=== PATIENT | male | born 1960 | race Caucasian/White ===

== ENCOUNTER 2020-11-07 12:32 | Inpatient (IN) | payer BC, SELFPAY ==
[2020-11-07 12:33] VITALS: BP 107/52; PULSE 98; RESP 22; TEMP 36.7; O2SAT 98; BMI 42.5
--- NOTE | 2020-11-07 13:23 | CA_ITS ---
APPROVED REPORT Bilateral Lower Extremity Venous Study for DVT. Sheet Cutter: PARVEZ Indications redness, swelling and pain x 2 days, s/p long distance travel Risk Factors Hx-Gout Vein Imaging CFV (R): compressive, spontaneous, phasic, augmentation SFJ (R): compressive, spontaneous, phasic, augmentation FEM (R): compressive, spontaneous, phasic, augmentation POP (R): compressive, spontaneous, phasic, augmentation PTV (R): compressive, spontaneous, phasic, augmentation GSV (R): compressive, spontaneous, phasic, augmentation SSV (R): compressive, spontaneous, phasic, augmentation Peroneals (R):compressive, spontaneous, phasic, augmentation GAS (R): compressive, spontaneous, phasic, augmentation Findings Color flow duplex demonstrates no evidence of DVT of the following right lower extremity Veins:Common Femoral Vein, Femoral Vein, Popliteal Vein, Posterior Tibial Veins, Peroneal Veins. No gross evidence of DVT at this time, Limited exam due to extreme body habitus. Conclusion No gross evidence of DVT at this time, Limited exam due to extreme body habitus. Electronically signed by : Donovan Donahue MD 11/07/2020 16:49:27
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
[2020-11-07 13:48] LABS: Influenza A, PCR Not Detected (NotDetected); Influenza B, PCR Not Detected (NotDetected)
[2020-11-07 13:50] LABS: Basophils % 0.4 % (0.1-2.0); Eosinophils % 0.6 % (0.1-12.0); Hematocrit 39.9 % (42.0-52.0); Lymphocytes # 0.8 K/mm3 (0.7-4.5); Mean Corpuscular HGB Conc 35.1 g/dL (31.8-35.4); Mean Corpuscular Hemoglobin 29.2 pg (27.0-31.2); Mean Corpuscular Volume 83.3 fl (80-94); Mean Platelet Volume 8.6 fl (7.4-10.4); Monocytes # 0.4 K/mm3 (0.1-1.0); Neutrophils # 4.8 K/mm3 (1.8-7.8); Neutrophils % 79.9 % (37.0-80.0); Platelet Count 108 K/mm3 (142-424); Red Blood Count 4.79 M/mm3 (4.60-6.20); Red Cell Distribution Width 14.5 % (11.5-17.5)
[2020-11-07 14:03] LABS: Chloride 98 mmol/L (98-107); Potassium 3.6 mmoL/L (3.5-5.1); Sodium 131 mmol/L (136-145)
[2020-11-07 14:06] LABS: Alanine Aminotransferase 90 U/L (12-78); Albumin Level 3.7 g/dl (3.5-5.0); Albumin/Globulin Ratio 1.1 (1.1-1.8); Alkaline Phosphatase 119 U/L (38-126); Anion Gap 9.6 mEq/L (5-15); Aspartate Amino Transferase 175 U/L (17-59); Bilirubin,Total 1.7 mg/dl (0.2-1.3); Blood Urea Nitrogen 23 mg/dl (9-20); Calcium 8.6 mg/dl (8.4-10.2); Carbon Dioxide 27 mmol/L (22.0-30.0); Creatinine Clearance Estimated 96 mL/min (50-200); Estimated Glomerular Filt Rate 76 ml/min (>60); GFR (African American) 92 ML/MIN (>60); Globulin 3.3 g/dL (1.3-3.2); Glucose 136 mg/dl (74-100)
[2020-11-07 14:23] LABS: Coronavirus 19, PCR Detected (NotDetected)
[2020-11-07 14:24] LABS: Activated Partial Thrombo Time 34.8 seconds (22.8-30.6); INR 0.96 (0.9-1.1); Prothrombin Time 11.4 seconds (10.1-12.5)
--- NOTE | 2020-11-07 14:26 | PC.NURSE ---
Covid results called, pt is positive
--- NOTE | 2020-11-07 15:33 | PC.NURSE ---
BED ASSIGNMENT REQUESTED, ROOM 201. ALL STAFF NOTIFIED
--- NOTE | 2020-11-07 15:33 | PC.NURSE ---
Attempted to call care management no answer, called house for admission
--- NOTE | 2020-11-07 15:40 | P.CONPHA_ITS ---
- Pharmacy Consult Date: 11/07/20 Time: 15:40 Referring provider: DR. NICOLAS Reason for Consult:: VANCOMYCIN DOSING Allergies and ADEs:: Allergies Allergy/AdvReac Type Severity Reaction Status Date / Time cephalexin [From Keflex] AdvReac Intermediate CHEMICAL Verified 11/07/20 15:36 HEPITITIS, BREAKING OUT erythromycin base AdvReac Intermediate CHENICAL Verified 11/07/20 15:36 HEPITITIS, BREAKING OUT Home Medications:: Home Medications Medication Instructions Recorded Confirmed Type Citalopram Hydrobromide [Celexa] 40 mg PO DAILY 11/07/20 11/07/20 History Simvastatin 40 mg PO DAILY 11/07/20 11/07/20 History Height: 1.93 m Weight: 158.757 kg Laboratory Results:: Laboratory Results - last 24 hr 11/07/20 13:40: WBC 6.0, RBC 4.79, Hgb 14.0 L, Hct 39.9 L, MCV 83.3, MCH 29.2, MCHC 35.1, RDW 14.5, Plt Count 108 L, MPV 8.6, Neut % (Auto) 79.9, Lymph % (Auto) 13.0, [place] % (Auto) 6.0, Eos % (Auto) 0.6, Baso % (Auto) 0.4, Neut # (Auto) 4.8, Lymph # (Auto) 0.8, [place] # (Auto) 0.4, Eos # (Auto) 0.0, Baso # (Auto) 0.0 11/07/20 13:40: APTT 34.8 H 11/07/20 13:40: Sodium 131 L, Potassium 3.6, Chloride 98, Carbon Dioxide 27, Anion Gap 9.6, BUN 23 H, Creatinine 1.00, Estimated Creat Clear 96, Estimated GFR 76, Est GFR ( Amer) 92, Glucose 136 H, Calcium 8.6, Total Bilirubin 1.7 H, AST 175 H, ALT 90 H, Alkaline Phosphatase 119, Total Protein 7.0, Albumin 3.7, Globulin 3.3 H, Albumin/Globulin Ratio 1.1 11/07/20 13:40: PT 11.4, INR 0.96 11/07/20 13:40: Lactate 1.0 11/07/20 13:40: SARS-CoV-2 (PCR) Detected A, Influenza A Untype (PCR) Not detec clary, Influenza Type B (PCR) Not detected Assessment and Plan - Assessment and plan all Dx Assessment and Plan for all problems:: Pharmacokinetic dosing service Objective: Patient: Floor: Age: 60 yo Serum creatinine: 1.00 mg/dL Height: 76.0 Inches Weight (kg): 158.7 Assessment: IBW (kg): 86.80 Dosing wt(kg): 158.7 Estimated Creatinine clearance (ml/min): 96.4 CRCL method: Cockcroft and Gault using ibw(default). Drug selected: Vancomycin Loading dose (mg): Vd (liters): 134.9 (factor used: 0.85 L/kg) Noman (hr-1): 0.084 Half life (hrs): 8.25 CLvanco=?? 11.332 L/hr Recommended dose: 3000 mg Interval: 12 hrs Infusion time (hrs): 3.0 Predicted peak (mcg/mL): 31.0 Predicted trough (mcg/mL): 14.56 Total body weight is being used for vancomycin dosing. Recommendations: Give Vancomycin 3000 mg q 12 hrs with an expected Cpeak of 31.0 mcg/ml and an expected Ctrough of 14.56 mcg/ml AUC 0-24 /JAMILAH Data: JAMILAH 0.5 mcg/mL:?? AUC/JAMILAH:? 1058.9 JAMILAH 1.0 mcg/mL:?? AUC/JAMILAH:? 529.5 --------- JAMILAH 1.5 mcg/mL:?? AUC/JAMILAH:? 353.0 JAMILAH 2.0 mcg/mL:?? AUC/JAMILAH:? 264.7 Renal dosing of other antibiotics (review renal dosing of other medications and list guidelines here): Thank you for the consult, will continue to follow.
[2020-11-07 15:55] LABS: Coronavirus 19 IgG Antibody Positive (Negative); Coronavirus 19 IgM Antibody Negative (Negative)
[2020-11-07 16:05] LABS: Microscopic, Urine URINE MICROSCOPIC (MICROSCOPIC)
[2020-11-07 16:07] LABS: Appearance,Urine SL CLOUDY (Clear); Bilirubin,Urine Negative (Negative); Blood, Urine 2+ (Negative); Color,Urine YELLOW (Yellow); Glucose,Urine (UA) Negative (Negative); Ketones,Urine Negative (Negative); Leukocyte Esterase,Urine Negative (Negative); Nitrate,Urine Negative (Negative); Protein,Urine TRACE (Negative)
[2020-11-07 16:24] LABS: Bacteria,Urine 1+ /lpf; Squamous Epithelial Cell,Urine Occasional #/hpf (0-5)
--- NOTE | 2020-11-07 20:30 | PC.NURSE ---
Report given to Ana Maria
[2020-11-07 20:48] VITALS: BP 112/80; PULSE 82; RESP 18; TEMP 37; O2SAT 96
[2020-11-07 21:00] VITALS: BP 120/46; PULSE 98; RESP 23; TEMP 38; O2SAT 96; BMI 45.1
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
[2020-11-08] VITALS (8 sets, daily range): BP systolic 107–153; BP diastolic 50–75; PULSE 80–104; RESP 17–21; TEMP 36.8–39.5; O2SAT 95–100; BMI 99.8
--- NOTE | 2020-11-08 03:14 | PC.NURSE ---
PATIENT TEMP 103.[address]MIN[address]ED. PAGED DR. SEAMAN AT [phone].
--- NOTE | 2020-11-08 04:24 | PC.NURSE ---
PATIENT IS A&OX4. NO COMPLAINTS OF PAIN AND RN EXPLAINED TO PATIENT THAT MORPHINE IS AVAILABLE IF PAIN BECOMES A ISSUE, PATIENT STATED HE PREFERS NOT TO TAKE NARCOTICS. PATIENT AMBULATED TO BATHROOM X1 ASSIST. RIGHT LEG IS VERY EDEMATOUS AND HOT TO THE TOUCH, AND IS TENDER. PATIENT IS FEBRILE AND ACETAMINOPHEN AND IBUPROFEN GIVEN. VSS OTHERWISE. PATIENT WAS PLEASANT THIS SHIFT AND VOICED NO FURTHER CONCERNS.
--- NOTE | 2020-11-08 07:58 | P.CONPHA_ITS ---
[facility] Pharmacy VTE Monitoring - Patient Demographics Admission date: 11/07/20 Report Date: 11/08/20 Time: 07:58 Allergies/Adverse Reactions: Patient Allergies cephalexin [From Keflex] Adverse Reaction (Intermediate, Verified 11/07/20 15:36) CHEMICAL HEPITITIS, BREAKING OUT erythromycin base Adverse Reaction (Intermediate, Verified 11/07/20 15:36) CHENICAL HEPITITIS, BREAKING OUT Height: 1.93 m Weight: 372 kg Patient Problems: Current Active Problems Cellulitis of right lower extremity (Acute) COVID-19 (Acute) Obesity (Acute) - VTE Risk Labs: VTE Related Lab Results Hgb 14.0 g/dL (14.1-18.0) L 11/07/20 13:40 Hct 39.9 % (42.0-52.0) L 11/07/20 13:40 Plt Count 108 K/mm3 (142-424) L 11/07/20 13:40 PT 11.4 seconds (10.1-12.5) 11/07/20 13:40 INR 0.96 (0.9-1.1) 11/07/20 13:40 APTT 34.8 seconds (22.8-30.6) H 11/07/20 13:40 BUN 23 mg/dl (9-20) H 11/07/20 13:40 Creatinine 1.00 mg/dl (0.66-1.25) 11/07/20 13:40 Estimated Creat Clear 96 mL/min (50-200) 11/07/20 13:40 - Prophylaxis VTE Prophylaxis Ordered?: Yes Types of VTE Prophylaxis: Pharmacological Pharmacologic Type: Heparin
[2020-11-08 08:37] LABS: Basophils % 0.3 % (0.1-2.0); Eosinophils % 0.1 % (0.1-12.0); Hematocrit 35.9 % (42.0-52.0); Lymphocytes # 1.1 K/mm3 (0.7-4.5); Lymphocytes % 18.9 % (10-50); Mean Corpuscular HGB Conc 34.9 g/dL (31.8-35.4); Mean Corpuscular Hemoglobin 28.6 pg (27.0-31.2); Mean Corpuscular Volume 81.8 fl (80-94); Mean Platelet Volume 9.8 fl (7.4-10.4); Monocytes # 0.5 K/mm3 (0.1-1.0); Monocytes % 7.9 % (1.7-9.3); Neutrophils # 4.2 K/mm3 (1.8-7.8); Neutrophils % 72.8 % (37.0-80.0); Platelet Count 97 K/mm3 (142-424); Red Blood Count 4.38 M/mm3 (4.60-6.20); Red Cell Distribution Width 14.3 % (11.5-17.5); White Blood Count 5.8 K/mm3 (4.8-10.8)
[2020-11-08 08:39] LABS: Chloride 101 mmol/L (98-107)
[2020-11-08 08:40] LABS: Potassium 3.3 mmoL/L (3.5-5.1); Sodium 131 mmol/L (136-145)
[2020-11-08 08:43] LABS: Anion Gap 8.3 mEq/L (5-15); Blood Urea Nitrogen 17 mg/dl (9-20); Calcium 8.3 mg/dl (8.4-10.2); Carbon Dioxide 25 mmol/L (22.0-30.0); Creatinine Clearance Estimated 117 mL/min (50-200); Estimated Glomerular Filt Rate 99 ml/min (>60); GFR (African American) 119 ML/MIN (>60); Glucose 129 mg/dl (74-100)
[2020-11-08 08:47] LABS: Hemoglobin 12.7 g/dL (14.1-18.0)
--- NOTE | 2020-11-08 10:01 | HMH.ACPN2 ---
Internal Medicine - PN: Subj *Date: 11/08/20 *Time: 10:01 Interval history: He feels a bit better since antibiotic treatment. The leg is still erythematous and edematous. It appears his leg was not wrapped very well yesterday as I had requested. The used to 3 inch Neptali which will need to cover the extent of his problem. His IgG is positive his IgM is negative his PCR is positive. This likely indicates that he is past the time that he would be shedding replicative virus. Exam Vital signs and Labs for Last 24 Hours: Temp Pulse Resp BP Pulse Ox 98.8 F 80 17 130/62 99 11/08/20 08:00 11/08/20 08:00 11/08/20 08:00 11/08/20 08:00 11/08/20 08:00 Laboratory Results - last 24 hr 11/07/20 13:00: SARS-CoV-2 IgG Ab (Rapid) Positive A, SARS-CoV-2 IgM Ab (Rapid) Negative 11/07/20 13:00: Urine Color Yellow, Urine Appearance Sl cloudy, Urine pH 6.0, Ur Specific [place] 1.020, Urine Protein Trace, Urine Glucose (UA) Negative, Urine Ketones Negative, Urine Blood 2+, Urine Nitrate Negative, Urine Bilirubin Negative, Urine Urobilinogen 1.0, Ur Leukocyte Esterase Negative, Urine RBC 5-10, Urine WBC 3-5, Ur Squamous Epith Cells Occasional, Urine Bacteria 1+ 11/07/20 13:40: WBC 6.0, RBC 4.79, Hgb 14.0 L, Hct 39.9 L, MCV 83.3, MCH 29.2, MCHC 35.1, RDW 14.5, Plt Count 108 L, MPV 8.6, Neut % (Auto) 79.9, Lymph % (Auto) 13.0, [place] % (Auto) 6.0, Eos % (Auto) 0.6, Baso % (Auto) 0.4, Neut # (Auto) 4.8, Lymph # (Auto) 0.8, [place] # (Auto) 0.4, Eos # (Auto) 0.0, Baso # (Auto) 0.0 11/07/20 13:40: APTT 34.8 H 11/07/20 13:40: Sodium 131 L, Potassium 3.6, Chloride 98, Carbon Dioxide 27, Anion Gap 9.6, BUN 23 H, Creatinine 1.00, Estimated Creat Clear 96, Estimated GFR 76, Est GFR ( Amer) 92, Glucose 136 H, Calcium 8.6, Total Bilirubin 1.7 H, AST 175 H, ALT 90 H, Alkaline Phosphatase 119, Total Protein 7.0, Albumin 3.7, Globulin 3.3 H, Albumin/Globulin Ratio 1.1 11/07/20 13:40: PT 11.4, INR 0.96 11/07/20 13:40: Lactate 1.0 11/07/20 13:40: SARS-CoV-2 (PCR) Detected A, Influenza A Untype (PCR) Not detected, Influenza Type B (PCR) Not detected 11/08/20 07:35: WBC 5.8, RBC 4.38 L, Hgb 12.7 L, Hct 35.9 L, MCV 81.8, MCH 28.6, MCHC 34.9, RDW 14.3, Plt Count 97 L, MPV 9.8, Neut % (Auto) 72.8, Lymph % (Auto) 18.9, [place] % (Auto) 7.9, Eos % (Auto) 0.1, Baso % (Auto) 0.3, Neut # (Auto) 4.2, Lymph # (Auto) 1.1, [place] # (Auto) 0.5, Eos # (Auto) 0.0, Baso # (Auto) 0.0 11/08/20 07:35: Sodium 131 L, Potassium 3.3 L, Chloride 101, Carbon Dioxide 25, Anion Gap 8.3, BUN 17 D, Creatinine 0.80, Estimated Creat Clear 117, Estimated GFR 99, Est GFR ( Amer) 119 D, Glucose 129 H, Calcium 8.3 L I & O for Last 24 hours: Intake & Output 11/05/20 11/06/20 11/07/20 11/08/20 11:59 11:59 11:59 11:59 Intake Total 1637 / 1637 Output Total 350 / 350 Balance 1287 / 1287 Weight 820 lb 1.913 oz - Constitutional no acute distress - *Routine HEENT Exam Head: Present: normocephalic Eye: Present: PERRL - *Routine Neck Exam Absent: JVD - *Routine Respiratory Exam Present: decreased breath sounds - *Routine Cardiovascular Exam Present: RRR - *Routine Extremities Exam Present: edema (Marked edema and erythema of the right lower leg.) Assessment and Plan (1) Obesity Status: Acute Category: Medical Code(s): E66.9 - Obesity, unspecified (2) COVID-19 Status: Acute Category: Medical Code(s): U07.1 - COVID-19 (3) Cellulitis of right lower extremity Status: Acute Category: Medical Code(s): L03.115 - Cellulitis of right lower limb - Assessment and plan all Dx Assessment and Plan for all problems:: I wrapped the leg as best I could with the 3 inch bandage. I instructed the nurse to obtain a 6 inch bandage continue the wrap up the leg. Continue present antibiotic treatment. K pad.
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
--- NOTE | 2020-11-08 11:42 | XR_ITS ---
PROCEDURE: XR CHEST PORTABLE CLINICAL HISTORY: covid and in covid unit COMPARISON: No exams were available for comparison FINDINGS: The cardiomediastinal silhouette and pulmonary vascularity are within normal limits. The lungs are clear without infiltrates, suspicious nodules, or pleural effusions. No acute bony abnormalities. IMPRESSION: No acute findings. Dictated by: Donovan Donahue MD 11/08/2020 13:12 Donovan Donahue MD in OV 11/08/2020 13:12
--- NOTE | 2020-11-08 14:27 | HMH.PHAINT ---
MEDICATION RECONCILIATION COMPLETED ON PATIENT USING EXTERNAL FILL HISTORY FROM PHARMACY AND CALL TO [facility]OPERS. -NIRAV SIMEOND
[2020-11-08 17:07] LABS: Vancomycin,Trough 7.4 ug/mL (5.0-10.0)
--- NOTE | 2020-11-08 17:52 | PC.NURSE ---
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 awaiting call back
--- NOTE | 2020-11-08 18:31 | PC.NURSE ---
Pt has been pleasant this shift. Diminished breath sounds t/o per auscultation. Bowel sounds active in all 4 quads, no BM this shift. Pt urinates per urinal. Urine is clear, orange in color. No other acute changes or complaints.
[2020-11-08 23:58] LABS: Vancomycin,Peak 23.2 ug/ml (11-39)
[2020-11-09] VITALS (7 sets, daily range): BP systolic 115–161; BP diastolic 47–75; PULSE 81–105; RESP 16–20; TEMP 36.8–38.1; O2SAT 94–99; BMI 45.7; BMI 45.6
--- NOTE | 2020-11-09 03:11 | PC.NURSE ---
Patient has been pleasant this shift. Patient is alert and oriented x4. Patient remains on room air this shift. Patient has had no complaints thus far. At the beginning of the shift patient had a temp of 100.5 and that was treated per MAR. Patient does have some pitting edema in his bilateral lower extremities. Vital signs are stable, call light within reach, will continue to monitor.
--- NOTE | 2020-11-09 08:53 | HMH.ACPN2 ---
Internal Medicine - PN: Subj *Date: 11/09/20 *Time: 08:53 Interval history: Patient did not have a very good night last night. He states he had a fever and did not feel well. He denies shortness of breath and cough. He is eating without difficulty. Labs are pending. Blood cultures appear to be positive x2. ID is pending. Exam Vital signs and Labs for Last 24 Hours: Temp Pulse Resp BP Pulse Ox 98.2 F 105 H 19 138/75 98 11/09/20 08:00 11/09/20 08:00 11/09/20 08:00 11/09/20 08:00 11/09/20 08:00 Laboratory Results - last 24 hr 11/08/20 16:25: Vancomycin Trough 7.4 11/08/20 22:30: Vancomycin Peak 23.2 I & O for Last 24 hours: Intake & Output 11/06/20 11/07/20 11/08/20 11/09/20 11:59 11:59 11:59 11:59 Intake Total 1637 / 1637 2233 / 2233 Output Total 350 / 350 1000 / 1000 Balance 1287 / 1287 1233 / 1233 Weight 820 lb 1.913 oz 375 lb 6 oz Microbiology Reports for the Last 24 Hours: Microbiology 11/07/20 16:20 Blood Blood Culture - Preliminary 11/07/20 16:20 Blood Blood Culture - Preliminary - Constitutional no acute distress Comments: Sitting on the bedside eating his breakfast. - *Routine Respiratory Exam Present: CTA bilaterally (Anteriorly and posteriorly) - *Routine Cardiovascular Exam Present: RRR - *Routine Abdominal Exam Present: soft, normoactive bowel sounds, obese. Absent: tenderness, guarding - *Routine Extremities Exam Present: edema. Absent: calf tenderness (Bilateral lower leg.) Comments: Right lower extremity is wrapped from the ankle to below the knee with Neptali wrapped. Edema does appear less. No surrounding erythema. - *Routine Neurological Exam Present: alert, oriented X3 Assessment and Plan (1) Obesity Status: Acute Category: Medical Code(s): E66.9 - Obesity, unspecified (2) COVID-19 Status: Acute Category: Medical Code(s): U07.1 - COVID-19 (3) Cellulitis of right lower extremity Status: Acute Category: Medical Code(s): L03.115 - Cellulitis of right lower limb (4) Hypokalemia Status: Acute Category: Medical Code(s): E87.6 - Hypokalemia
[2020-11-09 09:59] LABS: Chloride 100 mmol/L (98-107); Potassium 4.2 mmoL/L (3.5-5.1); Sodium 131 mmol/L (136-145)
[2020-11-09 10:02] LABS: Anion Gap 10.2 mEq/L (5-15); Blood Urea Nitrogen 13 mg/dl (9-20); Calcium 8.6 mg/dl (8.4-10.2); Carbon Dioxide 25 mmol/L (22.0-30.0); Creatinine Clearance Estimated 117 mL/min (50-200); Estimated Glomerular Filt Rate 99 ml/min (>60); GFR (African American) 119 ML/MIN (>60); Glucose 149 mg/dl (74-100)
--- NOTE | 2020-11-09 13:04 | PC.NURSE ---
Dr. Muñoz rounded at this time. Requested PICC line placement.
--- NOTE | 2020-11-09 14:00 | HMH.PHACONS ---
- Pharmacy Consult Date: 11/09/20 Time: 14:00 Referring provider: DR. SEAMAN Reason for Consult:: VANCOMYCIN LEVELS Allergies and ADEs:: Allergies Allergy/AdvReac Type Severity Reaction Status Date / Time cephalexin [From Keflex] AdvReac Intermediate CHEMICAL Verified 11/07/20 15:36 HEPITITIS, BREAKING OUT erythromycin base AdvReac Intermediate CHENICAL Verified 11/07/20 15:36 HEPITITIS, BREAKING OUT Home Medications:: Home Medications Medication Instructions Recorded Confirmed Type Citalopram Hydrobromide [Celexa] 40 mg PO DAILY 11/07/20 11/08/20 History Simvastatin 40 mg PO HS 11/07/20 11/08/20 History Furosemide [Lasix 20mg tab] 20 mg PO DAILY 11/08/20 11/08/20 History Height: 1.93 m Weight: 170.267 kg Laboratory Results:: Laboratory Results - last 24 hr 11/08/20 16:25: Vancomycin Trough 7.4 11/08/20 22:30: Vancomycin Peak 23.2 11/09/20 09:35: Sodium 131 L, Potassium 4.2 D, Chloride 100, Carbon Dioxide 25, Anion Gap 10.2, BUN 13, Creatinine 0.80, Estimated Creat Clear 117, Estimated GFR 99, Est GFR ( Amer) 119, Glucose 149 H, Calcium 8.6 Medical History: Reports:: Depression, Hyperlipidemia Denies:: Chronic Obstructive Pulmonary Disease (COPD), Deep Vein Thrombosis, Diabetes Mellitus Type 2, Gastroesophageal Reflux Disease(GERD) Assessment and Plan (1) Obesity Status: Acute Category: Medical Code(s): E66.9 - Obesity, unspecified (2) COVID-19 Status: Acute Category: Medical Code(s): U07.1 - COVID-19 (3) Cellulitis of right lower extremity Status: Acute Category: Medical Code(s): L03.115 - Cellulitis of right lower limb (4) Hypokalemia Status: Acute Category: Medical Code(s): E87.6 - Hypokalemia - Assessment and plan all Dx Assessment and Plan for all problems:: PATIENT HAD TROUGH LEVEL OF 7.4 MCG/ML DONE PRIOR TO THE THIRD DOSE OF VANCOMYCIN 3000 MG Q12H. LEVEL 2 HOURS POST INFUSION WAS 23.2 MCG/ML. RECOMMEND CHANGING DOSE OF VANCOMYCIN 2500 MG Q8H STARTING AT 1300 TODAY. WILL OBTAIN PEAK AND TROUGH LEVELS TOMORROW AROUND THE 1300 DOSE.
--- NOTE | 2020-11-09 17:55 | PC.NURSE ---
pt has slept majority of this shift. k pad applied to RLE. Pt has been febrile this shift, PRN tylenol given per may. Pt has pulled his PIV. Pt requests to be PIV placement after he finishes supper. no other acute changes or complaints. will continue to monitor.
[2020-11-10 04:00] VITALS: BP 143/53; PULSE 92; RESP 16; TEMP 37.2; O2SAT 96
[2020-11-10 05:00] VITALS: BMI 44.9
--- NOTE | 2020-11-10 06:19 | PC.NURSE ---
shift summary patient has rested better tonight in recliner than previous night in bed. o2 sats have remained greater than 92% on r/a. bilateral lower extremities remain swollen and red, have been elevated in reclining position. patient ran temp of 100.6 treated successfully with tylenol
[2020-11-10 08:00] VITALS: BP 143/87; PULSE 85; RESP 18; TEMP 38.5; O2SAT 92; O2SAT 93
[2020-11-10 09:09] LABS: Basophils % 0.4 % (0.1-2.0); Eosinophils % 0.2 % (0.1-12.0); Lymphocytes # 0.3 K/mm3 (0.7-4.5); Lymphocytes % 12.5 % (10-50); Mean Corpuscular HGB Conc 33.3 g/dL (31.8-35.4); Mean Corpuscular Hemoglobin 28.5 pg (27.0-31.2); Mean Corpuscular Volume 85.8 fl (80-94); Mean Platelet Volume 9.3 fl (7.4-10.4); Monocytes # 0.1 K/mm3 (0.1-1.0); Monocytes % 5.8 % (1.7-9.3); Neutrophils # 1.9 K/mm3 (1.8-7.8); Neutrophils % 81.1 % (37.0-80.0); Red Cell Distribution Width 14.7 % (11.5-17.5); White Blood Count 2.3 K/mm3 (4.8-10.8)
[2020-11-10 09:57] LABS: Hematocrit 12.4 % (42.0-52.0)
[2020-11-10 10:57] LABS: Basophils % 0.4 % (0.1-2.0); Eosinophils % 0.4 % (0.1-12.0); Hematocrit 32.6 % (42.0-52.0); Lymphocytes # 0.8 K/mm3 (0.7-4.5); Lymphocytes % 12.4 % (10-50); Mean Corpuscular HGB Conc 33.7 g/dL (31.8-35.4); Mean Corpuscular Volume 86.2 fl (80-94); Mean Platelet Volume 8.6 fl (7.4-10.4); Monocytes # 0.3 K/mm3 (0.1-1.0); Monocytes % 4.9 % (1.7-9.3); Neutrophils % 81.8 % (37.0-80.0); Platelet Count 108 K/mm3 (142-424); Red Blood Count 3.78 M/mm3 (4.60-6.20); Red Cell Distribution Width 13.8 % (11.5-17.5); White Blood Count 6.1 K/mm3 (4.8-10.8)
[2020-11-10 11:08] LABS: Red Blood Count 1.45 M/mm3 (4.60-6.20)
[2020-11-10 11:09] LABS: Hemoglobin 4.1 g/dL (14.1-18.0); Platelet Count 41 K/mm3 (142-424)
--- NOTE | 2020-11-10 11:23 | PC.NURSE ---
PT FEBRILE WITH MORNING VITALS 650 MG TYLENOL GIVEN PER MAY. RECHECKED AT 1030 PT ORAL TEMPERATURE 100.9. ICE PACKS PLACED IN AXILLARY BILATERALLY.
--- NOTE | 2020-11-10 11:34 | HMH.ACPN2 ---
Internal Medicine - PN: Subj *Date: 11/10/20 *Time: 11:34 Interval history: He is quite bored. He has run some fever. His white count is normal this morning after an inaccurate initial report by lab which was repeated. His leg looks very slightly improved but is still quite swollen and erythematous. He is receiving vancomycin. I would add cefdinir p.o. I ordered a PICC line yesterday verbally but it was not accomplished. We will try again today. Exam Vital signs and Labs for Last 24 Hours: Temp Pulse Resp BP Pulse Ox 101.3 F H 85 18 143/87 H 92 L 11/10/20 08:00 11/10/20 08:00 11/10/20 08:00 11/10/20 08:00 11/10/20 08:00 Laboratory Results - last 24 hr 11/10/20 08:53: WBC 2.3 L D, RBC 1.45 L* D, Hgb 4.1 L*, Hct 12.4 L*, MCV 85.8, MCH 28.5, MCHC 33.3, RDW 14.7, Plt Count 41 L* D, MPV 9.3, Neut % (Auto) 81.1 H, Lymph % (Auto) 12.5, [place] % (Auto) 5.8, Eos % (Auto) 0.2, Baso % (Auto) 0.4, Neut # (Auto) 1.9, Lymph # (Auto) 0.3 L, [place] # (Auto) 0.1, Eos # (Auto) 0.0, Baso # (Auto) 0.0 11/10/20 10:32: WBC 6.1 D, RBC 3.78 L D, Hgb 11.0 L D, Hct 32.6 L, MCV 86.2, MCH 29.0, MCHC 33.7, RDW 13.8, Plt Count 108 L D, MPV 8.6, Neut % (Auto) 81.8 H, Lymph % (Auto) 12.4, [place] % (Auto) 4.9, Eos % (Auto) 0.4, Baso % (Auto) 0.4, Neut # (Auto) 5.0, Lymph # (Auto) 0.8, [place] # (Auto) 0.3, Eos # (Auto) 0.0, Baso # (Auto) 0.0 I & O for Last 24 hours: Intake & Output 11/07/20 11/08/20 11/09/20 11/10/20 11:59 11:59 11:59 11:59 Intake Total 1637 / 1637 2233 / 2233 1580 / 1580 Output Total 350 / 350 1000 / 1000 Balance 1287 / 1287 1233 / 1233 1580 / 1580 Weight 820 lb 1.913 oz 375 lb 6 oz 369 lb 4.388 oz Microbiology Reports for the Last 24 Hours: Microbiology 11/07/20 16:20 Blood Blood Culture - Preliminary Gram Positive Cocci 11/07/20 16:20 Blood Blood Culture - Preliminary Gram Positive Cocci - Constitutional no acute distress - *Routine HEENT Exam Head: Present: normocephalic Eye: Present: PERRL ENT: Present: mucous membranes moist - *Routine Respiratory Exam Absent: respiratory distress - *Routine Cardiovascular Exam Present: RRR - *Routine Extremities Exam Present: edema (Edema and erythema of the right lower leg.) - *Routine Neurological Exam Present: alert, oriented X3 Assessment and Plan (1) Cellulitis of right lower extremity Status: Acute Category: Medical Code(s): L03.115 - Cellulitis of right lower limb (2) COVID-19 Status: Acute Category: Medical Code(s): U07.1 - COVID-19 (3) Obesity Status: Acute Category: Medical Code(s): E66.9 - Obesity, unspecified (4) Hypokalemia Status: Acute Category: Medical Code(s): E87.6 - Hypokalemia - Assessment and plan all Dx Assessment and Plan for all problems:: PICC line in case we needed for IV vancomycin. I see that he has shown allergy to cephalexin so I cannot order cefdinir.
[2020-11-10 12:00] VITALS: BP 118/50; PULSE 82; RESP 18; TEMP 37.5; O2SAT 95
[2020-11-10 13:39] LABS: Anion Gap 14.9 mEq/L (5-15); Blood Urea Nitrogen 12 mg/dl (9-20); Calcium 8.8 mg/dl (8.4-10.2); Carbon Dioxide 20 mmol/L (22.0-30.0); Chloride 106 mmol/L (98-107); Creatinine Clearance Estimated 94 mL/min (50-200); Estimated Glomerular Filt Rate 76 ml/min (>60); GFR (African American) 92 ML/MIN (>60); Glucose 127 mg/dl (74-100); Potassium 5.9 mmoL/L (3.5-5.1); Sodium 135 mmol/L (136-145)
[2020-11-10 15:55] VITALS: BP 134/69; PULSE 84; TEMP 37.3; O2SAT 95
--- NOTE | 2020-11-10 16:51 | XR_ITS ---
PROCEDURE: XR CHEST PORTABLE PICC PLAC CLINICAL HISTORY: PICC line placement COMPARISON: CR XR CHEST PORTABLE from 11/08/2020 FINDINGS: There is lordotic positioning. Left upper extremity PICC line has been inserted. The tip is in good position in the region of the SVC. There is mild cardiomegaly. Increased markings are present in the left perihilar region and may be related to developing infiltrate. IMPRESSION: PICC line tip in good position. Left perihilar infiltrate Dictated by: Donovan Donahue MD 11/10/2020 17:26 Donovan Donahue MD in [facility] 11/10/2020 17:26
--- NOTE | 2020-11-10 18:10 | PC.NURSE ---
PT HAS BEEN FEBRILE THIS SHIFT AND WAS TREATED WITH TYLENOL AND IBUPROFEN WITH GOOD EFFECTIVENESS, HE WAS ALSO SUPPLIED WITH ICE PACKS TO HELP REGULATE TEMPERATURE, HE HAS DENIED PAIN, NO N/V/D NOTED THIS SHIFT, PICC PLACED TO LUE AND VERIFIED WITH CXRAY. PT BATHED INDEPENDENTLY IN ROOM, VITAL SIGNS HAVE REMAINED STABLE, NO NEEDS VOICED AT THIS TIME.
[2020-11-10 18:40] LABS: Vancomycin,Peak 27.1 ug/ml (11-39)
[2020-11-10 20:00] VITALS: BP 114/55; PULSE 75; RESP 16; TEMP 37.1; O2SAT 97
[2020-11-11 04:00] VITALS: BP 156/75; PULSE 102; RESP 20; O2SAT 95
[2020-11-11 08:00] VITALS: BP 119/67; PULSE 88; RESP 16; TEMP 36.1; O2SAT 97
[2020-11-11 08:43] LABS: Basophils % 0.7 % (0.1-2.0); Eosinophils % 0.8 % (0.1-12.0); Hematocrit 31.2 % (42.0-52.0); Hemoglobin 10.9 g/dL (14.1-18.0); Lymphocytes % 20.1 % (10-50); Mean Corpuscular HGB Conc 34.9 g/dL (31.8-35.4); Mean Corpuscular Hemoglobin 29.1 pg (27.0-31.2); Mean Corpuscular Volume 83.5 fl (80-94); Mean Platelet Volume 8.8 fl (7.4-10.4); Monocytes # 0.3 K/mm3 (0.1-1.0); Monocytes % 4.9 % (1.7-9.3); Neutrophils # 3.7 K/mm3 (1.8-7.8); Neutrophils % 73.5 % (37.0-80.0); Platelet Count 132 K/mm3 (142-424); Red Blood Count 3.73 M/mm3 (4.60-6.20); Red Cell Distribution Width 14.5 % (11.5-17.5); White Blood Count 5.1 K/mm3 (4.8-10.8)
[2020-11-11 08:53] LABS: Chloride 101 mmol/L (98-107); Potassium 4.2 mmoL/L (3.5-5.1); Sodium 131 mmol/L (136-145)
[2020-11-11 08:56] LABS: Anion Gap 7.2 mEq/L (5-15); Blood Urea Nitrogen 12 mg/dl (9-20); Carbon Dioxide 27 mmol/L (22.0-30.0); Creatinine Clearance Estimated 85 mL/min (50-200); Estimated Glomerular Filt Rate 68 ml/min (>60); GFR (African American) 83 ML/MIN (>60)
[2020-11-11 08:57] LABS: Calcium 8.2 mg/dl (8.4-10.2); Glucose 130 mg/dl (74-100)
--- NOTE | 2020-11-11 10:04 | HMH.PHACONS ---
- Pharmacy Consult Date: 11/11/20 Time: 10:04 Referring provider: DR. SEAMAN Reason for Consult:: VANCOMYCIN DOSING Allergies and ADEs:: Allergies Allergy/AdvReac Type Severity Reaction Status Date / Time cephalexin [From Keflex] AdvReac Intermediate CHEMICAL Verified 11/07/20 15:36 HEPITITIS, BREAKING OUT erythromycin base AdvReac Intermediate CHENICAL Verified 11/07/20 15:36 HEPITITIS, BREAKING OUT Home Medications:: Home Medications Medication Instructions Recorded Confirmed Type Citalopram Hydrobromide [Celexa] 40 mg PO DAILY 11/07/20 11/08/20 History Simvastatin 40 mg PO HS 11/07/20 11/08/20 History Furosemide [Lasix 20mg tab] 20 mg PO DAILY 11/08/20 11/08/20 History Height: 1.93 m Weight: 167.5 kg Laboratory Results:: Laboratory Results - last 24 hr 11/10/20 08:53: RBC 1.45 L* D, Hgb 4.1 L*, Plt Count 41 L* D 11/10/20 10:32: WBC 6.1 D, RBC 3.78 L D, Hgb 11.0 L D, Hct 32.6 L, MCV 86.2, MCH 29.0, MCHC 33.7, RDW 13.8, Plt Count 108 L D, MPV 8.6, Neut % (Auto) 81.8 H, Lymph % (Auto) 12.4, [place] % (Auto) 4.9, Eos % (Auto) 0.4, Baso % (Auto) 0.4, Neut # (Auto) 5.0, Lymph # (Auto) 0.8, [place] # (Auto) 0.3, Eos # (Auto) 0.0, Baso # (Auto) 0.0 11/10/20 12:45: Sodium 135 L, Potassium 5.9 H D, Chloride 106, Carbon Dioxide 20 L, Anion Gap 14.9, BUN 12, Creatinine 1.00 D, Estimated Creat Clear 94, Estimated GFR 76, Est GFR ( Amer) 92 D, Glucose 127 H, Calcium 8.8 11/10/20 12:45: Vancomycin Trough 15.0 H 11/10/20 17:30: Vancomycin Peak 27.1 11/11/20 07:00: WBC 5.1, RBC 3.73 L, Hgb 10.9 L, Hct 31.2 L, MCV 83.5, MCH 29.1, MCHC 34.9, RDW 14.5, Plt Count 132 L, MPV 8.8, Neut % (Auto) 73.5, Lymph % (Auto) 20.1, [place] % (Auto) 4.9, Eos % (Auto) 0.8, Baso % (Auto) 0.7, Neut # (Auto) 3.7, Lymph # (Auto) 1.0, [place] # (Auto) 0.3, Eos # (Auto) 0.0, Baso # (Auto) 0.0 11/11/20 07:00: Sodium 131 L, Potassium 4.2 D, Chloride 101, Carbon Dioxide 27, Anion Gap 7.2, BUN 12, Creatinine 1.10, Estimated Creat Clear 85, Estimated GFR 68, Est GFR ( Amer) 83, Glucose 130 H, Calcium 8.2 L Medical History: Reports:: Depression, Hyperlipidemia Denies:: Chronic Obstructive Pulmonary Disease (COPD), Deep Vein Thrombosis, Diabetes Mellitus Type 2, Gastroesophageal Reflux Disease(GERD) Assessment and Plan (1) Cellulitis of right lower extremity Status: Acute Category: Medical Code(s): L03.115 - Cellulitis of right lower limb (2) COVID-19 Status: Acute Category: Medical Code(s): U07.1 - COVID-19 (3) Obesity Status: Acute Category: Medical Code(s): E66.9 - Obesity, unspecified (4) Hypokalemia Status: Acute Category: Medical Code(s): E87.6 - Hypokalemia - Assessment and plan all Dx Assessment and Plan for all problems:: BASED ON PATIENT FACTORS, RECOMMEND CONTINUING CURRENT DOSE OF VANCOMYCIN AT 2,500MG Q8H. CALCULATED AUC IS 506.5. PHARMACY WILL CONTINUE TO MONITOR AND WILL ADJUST DOSE APPROPRIATE. -BINH MAGUIRE PHARMD
[2020-11-11 12:00] VITALS: BP 122/68; PULSE 79; RESP 16; TEMP 36.4; O2SAT 97
[2020-11-11 14:41] LABS: Influenza A, PCR Not Detected (NotDetected); Influenza B, PCR Not Detected (NotDetected)
--- NOTE | 2020-11-11 14:42 | DIET.NUTRFU ---
PO intakes 75%, weight stable, pt has not had a BM t/o stay. Pt has been provided diet edu for nutritional considerations COVID recovery at home.
[2020-11-11 15:12] LABS: Coronavirus 19, PCR Detected (NotDetected)
[2020-11-11 16:00] VITALS: BP 152/80; PULSE 82; RESP 20; TEMP 38.1; O2SAT 96
--- NOTE | 2020-11-11 16:00 | HMH.PTEV ---
Physical Therapy Evaluation Rehab PT IP Evaluation Start: 11/11/20 14:11 Freq: ONCE Status: Active Protocol: Document 11/11/20 15:57 [email or web address] (Rec: 11/11/20 16:00 PHOJERO [id number]) Subjective/History History History 60 yowm adm to [facility] with R LE cellulitis and COVID+. He reports he is independent with all mobility at baseline and remains so here in the hospital. Subjective Subjective Pt reports increased pain and tenderness in the R lower leg. Pt fit with edema wear for swelling control and instructed in its use. Rehab PT IP Eval Objective Appearance Patient Behavior Appropriate Patient Orientation Person,Place,Time Difficulty following instructions none Speech Pattern Clear Rehab PT IP prob,goals,plan Problems Date of Evaluation: 11/11/20 Discharge Plan PT Discharge Plan Pt is appropriate to return home once medically stable with appropriate edema control for R LE. G -code Required No Eval Complexity Eval Charge Codes 20884 - Moderate Complexity PHYSICIAN CERTIFICATION: I certify the specified therapy services for Ori Lew are required, authorized, and reviewed every 30 days.
--- NOTE | 2020-11-11 18:30 | PC.NURSE ---
Pt a+o x4 and pleasant t/o shift. Pt has had 1 episode of n/v and refused any medication. Pt has tolerated RA well with sats above 90%. Pt has been febrile this shift and was treated per MAY. Pt able to ambulate to bathroom independently and has 1 BM this shift. Call light within reach. Will continue to monitor.
[2020-11-11 20:00] VITALS: BP 137/62; PULSE 102; RESP 18; TEMP 38.1; O2SAT 92
[2020-11-12] VITALS (9 sets, daily range): BP systolic 112–138; BP diastolic 53–64; PULSE 85–98; RESP 18–20; TEMP 36.6–39; O2SAT 90–95; BMI 45.2
--- NOTE | 2020-11-12 04:49 | PC.NURSE ---
pt is AxOx4, has been febrile this shift with a high temp of 102.2, treated with ibuprofen and temperature came down to 99.8, no complaints of pain or SOA, remains on room air with O2 sats 90-92%, BLE with pitting edema and redness noted
--- NOTE | 2020-11-12 13:53 | P.PN_ITS ---
Internal Medicine - PN: Subj *Date: 11/12/20 *Time: 13:53 Interval history: I had hoped to send the patient home today but he has had serous drainage develop from the right leg. There is less erythema. There is skin sloughing with the weeping. He still has extreme edema. His white cell count has not been elevated during the time that he has been here. He has had a low-grade temperature off and on. He obviously has severe venous compromise to both lower extremities. He may need further vascular evaluation. Exam Vital signs and Labs for Last 24 Hours: Temp Pulse Resp BP Pulse Ox 99.5 F 89 18 138/64 95 11/12/20 11:57 11/12/20 11:57 11/12/20 11:57 11/12/20 11:57 11/12/20 11:57 Laboratory Results - last 24 hr 11/11/20 14:27: SARS-CoV-2 (PCR) Detected A, Influenza A Untype (PCR) Not detec clary, Influenza Type B (PCR) Not detected I & O for Last 24 hours: Intake & Output 11/10/20 11/11/20 11/12/20 11/13/20 11:59 11:59 11:59 11:59 Intake Total 1900 / 1900 3562 / 3562 600 / 600 360 / 360 Output Total 300 / 300 300 / 300 Balance 1900 / 1900 3262 / 3262 300 / 300 360 / 360 Weight 369 lb 4.388 oz 371 lb 10.414 oz Microbiology Reports for the Last 24 Hours: Microbiology 11/07/20 16:20 Blood Blood Culture - Preliminary Staphylococcus lugdunensis - Constitutional no acute distress - Routine Chest/Breast/Axilla Exam Chest wall: Absent: tenderness - *Routine Respiratory Exam Present: CTA bilaterally. Absent: respiratory distress - *Routine Cardiovascular Exam Present: tachycardia - *Routine Abdominal Exam Present: soft, obese. Absent: tenderness - *Routine Extremities Exam Present: edema (Bilateral edema with right much worse than left. Stasis changes and drainage from right), normal capillary refill (And circulation of the toes appears intact) Assessment and Plan (1) Cellulitis of right lower extremity Status: Acute Category: Medical Code(s): L03.115 - Cellulitis of right lower limb (2) COVID-19 Status: Acute Category: Medical Code(s): U07.1 - COVID-19 (3) Obesity Status: Acute Category: Medical Code(s): E66.9 - Obesity, unspecified (4) Peripheral vascular disease Status: Acute Category: Medical Code(s): I73.9 - Peripheral vascular disease, unspecified (5) Hypokalemia Status: Acute Category: Medical Code(s): E87.6 - Hypokalemia - Assessment and plan all Dx Assessment and Plan for all problems:: Continue IV antibiotics. Continue wound care. Cardiovascular consultation.
--- NOTE | 2020-11-12 17:22 | PC.NURSE ---
Shift summary. Pt has been febrile this shift with fevers up to 102.2. Pt has been tx per MAY 2x t/o shift with successful outcomes. Pts right renteria and calf have been weeping t/o shift. ABD pads, 4x4s, and HUBER wrap has been re-applied every 3-4 hours. Pt is able to ambulate to bathroom independently. No complaints have been voiced to staff. Call light within reach. Will continue to monitor.
[2020-11-13] VITALS (7 sets, daily range): BP systolic 100–150; BP diastolic 60–69; PULSE 72–106; RESP 18–22; TEMP 36.4–37.7; O2SAT 90–98; BMI 45.3
--- NOTE | 2020-11-13 03:27 | PC.NURSE ---
No acute changes this shift. Pt slept well. Pt's right renteria/calf area continues to weep fluid, with some skin sloughing off. Dressing change to right renteria/calf area every 4-5 hours this shift. Pt denies any pain. Pt ambulates to bathroom independently, pt had one episode of SOA, O2 stat showed 92% when checked. pt has ran a low grade temp t/o shift, admin meds per MAY with some relief. Call light within reach. No concerns at this time.
--- NOTE | 2020-11-13 05:08 | PC.NURSE ---
pt reports having blood in his stool. Denies any pain with BM.
[2020-11-13 08:33] LABS: Basophils % 0.4 % (0.1-2.0); Hematocrit 37.7 % (42.0-52.0); Hemoglobin 12.6 g/dL (14.1-18.0); Lymphocytes # 0.6 K/mm3 (0.7-4.5); Lymphocytes % 7.1 % (10-50); Mean Corpuscular HGB Conc 33.5 g/dL (31.8-35.4); Mean Corpuscular Volume 86.6 fl (80-94); Mean Platelet Volume 8.8 fl (7.4-10.4); Monocytes # 0.2 K/mm3 (0.1-1.0); Monocytes % 2.7 % (1.7-9.3); Neutrophils # 8.2 K/mm3 (1.8-7.8); Neutrophils % 89.7 % (37.0-80.0); Platelet Count 220 K/mm3 (142-424); Red Blood Count 4.35 M/mm3 (4.60-6.20); Red Cell Distribution Width 14.2 % (11.5-17.5); White Blood Count 9.1 K/mm3 (4.8-10.8)
[2020-11-13 08:35] LABS: Chloride 99 mmol/L (98-107); MANUAL DIFFERENTIAL MANUAL DIFFERENTIAL (MANUAL DIFF)
[2020-11-13 08:36] LABS: Potassium 4.6 mmoL/L (3.5-5.1); Sodium 127 mmol/L (136-145)
[2020-11-13 08:38] LABS: Blood Urea Nitrogen 24 mg/dl (9-20); Creatinine Clearance Estimated 41 mL/min (50-200); Estimated Glomerular Filt Rate 29 ml/min (>60); GFR (African American) 35 ML/MIN (>60)
[2020-11-13 08:39] LABS: Anion Gap 10.6 mEq/L (5-15); Calcium 7.7 mg/dl (8.4-10.2); Carbon Dioxide 22 mmol/L (22.0-30.0); Glucose 194 mg/dl (74-100)
[2020-11-13 09:30] LABS: Lymphocytes % 10 % (10-50); Monocytes % 2 % (2-9); Neutrophils % 88 % (42-76); Platelet Estimate Normal; RBC Morphology Normal; Total Cells Counted 100
--- NOTE | 2020-11-13 14:09 | P.PN_ITS ---
Internal Medicine - PN: Subj *Date: 11/13/20 *Time: 14:09 Interval history: Patient remains stable. The leg looks a little bit better today. Still weeping heavily. There is less erythema. I debrided some skin. The leg will be rewrapped. Cardiology will consult tomorrow regarding vascular issues. He reports some blood in his bowel, likely from the Xarelto. He has no history of colonoscopy. Exam Vital signs and Labs for Last 24 Hours: Temp Pulse Resp BP Pulse Ox 97.5 F L 74 18 121/61 93 L 11/13/20 12:00 11/13/20 12:00 11/13/20 12:00 11/13/20 12:00 11/13/20 12:00 Laboratory Results - last 24 hr 11/13/20 08:11: WBC 9.1 D, RBC 4.35 L, Hgb 12.6 L, Hct 37.7 L, MCV 86.6, MCH 29.0, MCHC 33.5, RDW 14.2, Plt Count 220 D, MPV 8.8, Neut % (Auto) 89.7 H, Lymph % (Auto) 7.1 L, [place] % (Auto) 2.7, Eos % (Auto) 0.0 L, Baso % (Auto) 0.4, Neut # (Auto) 8.2 H, Lymph # (Auto) 0.6 L, [place] # (Auto) 0.2, Eos # (Auto) 0.0, Baso # (Auto) 0.0, Total Counted 100, Neutrophils % (Manual) 88 H, Lymphocytes % (Manual) 10, Monocytes % (Manual) 2, Platelet Estimate Normal, RBC Morphology Normal 11/13/20 08:11: Sodium 127 L, Potassium 4.6, Chloride 99, Carbon Dioxide 22, Anion Gap 10.6, BUN 24 H D, Creatinine 2.30 H D, Estimated Creat Clear 41, Estimated GFR 29 L, Est GFR ( Amer) 35 L D, Glucose 194 H, Calcium 7.7 L I & O for Last 24 hours: Intake & Output 11/11/20 11/12/20 11/13/20 11/14/20 11:59 11:59 11:59 11:59 Intake Total 3562 / 3562 600 / 600 1700 / 1700 240 / 240 Output Total 300 / 300 300 / 300 Balance 3262 / 3262 300 / 300 1700 / 1700 240 / 240 Weight 371 lb 10.414 oz 372 lb - Constitutional no acute distress - *Routine HEENT Exam Head: Present: normocephalic Eye: Present: PERRL ENT: Present: mucous membranes moist - *Routine Neck Exam Absent: JVD - *Routine Respiratory Exam Present: CTA bilaterally - *Routine Cardiovascular Exam Present: RRR - *Routine Abdominal Exam Present: soft, obese - *Routine Extremities Exam Present: edema (There may be some improvement in the right leg. Heavy weeping continues.) - *Routine Skin Exam Absent: intact - *Routine Neurological Exam Present: alert, oriented X3 Assessment and Plan (1) Cellulitis of right lower extremity Status: Acute Category: Medical Code(s): L03.115 - Cellulitis of right lower limb (2) COVID-19 Status: Acute Category: Medical Code(s): U07.1 - COVID-19 (3) Obesity Status: Acute Category: Medical Code(s): E66.9 - Obesity, unspecified (4) Peripheral vascular disease Status: Acute Category: Medical Code(s): I73.9 - Peripheral vascular disease, unspecified (5) Hypokalemia Status: Acute Category: Medical Code(s): E87.6 - Hypokalemia - Assessment and plan all Dx Assessment and Plan for all problems:: 40 mg a day. Electrolytes are stable except sodium is low. I will add Micro-K 10 mEq a day to improve the sodium potassium pump situation.
--- NOTE | 2020-11-13 15:12 | HMH.ACPN ---
Internal Medicine - PN: Subj *Date: 11/13/20 *Time: 15:12 Exam Vital signs and Labs for Last 24 Hours: Temp Pulse Resp BP Pulse Ox 97.5 F L 74 18 121/61 93 L 11/13/20 12:00 11/13/20 12:00 11/13/20 12:00 11/13/20 12:00 11/13/20 12:00 Laboratory Results - last 24 hr 11/13/20 08:11: WBC 9.1 D, RBC 4.35 L, Hgb 12.6 L, Hct 37.7 L, MCV 86.6, MCH 29.0, MCHC 33.5, RDW 14.2, Plt Count 220 D, MPV 8.8, Neut % (Auto) 89.7 H, Lymph % (Auto) 7.1 L, [place] % (Auto) 2.7, Eos % (Auto) 0.0 L, Baso % (Auto) 0.4, Neut # (Auto) 8.2 H, Lymph # (Auto) 0.6 L, [place] # (Auto) 0.2, Eos # (Auto) 0.0, Baso # (Auto) 0.0, Total Counted 100, Neutrophils % (Manual) 88 H, Lymphocytes % (Manual) 10, Monocytes % (Manual) 2, Platelet Estimate Normal, RBC Morphology Normal 11/13/20 08:11: Sodium 127 L, Potassium 4.6, Chloride 99, Carbon Dioxide 22, Anion Gap 10.6, BUN 24 H D, Creatinine 2.30 H D, Estimated Creat Clear 41, Estimated GFR 29 L, Est GFR ( Amer) 35 L D, Glucose 194 H, Calcium 7.7 L I & O for Last 24 hours: Intake & Output 11/10/20 11/11/20 11/12/20 11/13/20 23:59 23:59 23:59 23:59 Intake Total 1900 / 1900 3322 / 3322 1570 / 1820 730 / 730 Output Total 300 / 300 300 / 300 Balance 1900 / 1600 3022 / 3022 1270 / 1520 730 / 730 Weight 167.5 kg 168.578 kg 168.736 kg Assessment and Plan (1) Cellulitis of right lower extremity Status: Acute Category: Medical Code(s): L03.115 - Cellulitis of right lower limb (2) COVID-19 Status: Acute Category: Medical Code(s): U07.1 - COVID-19 (3) Obesity Status: Acute Category: Medical Code(s): E66.9 - Obesity, unspecified (4) Peripheral vascular disease Status: Acute Category: Medical Code(s): I73.9 - Peripheral vascular disease, unspecified (5) Hypokalemia Status: Acute Category: Medical Code(s): E87.6 - Hypokalemia The patient's infection will respond to the chosen ABx?: Yes Is the patient receiving the right drug, dose, and route?: Yes Could a more targeted ABx be ordered?: No
--- NOTE | 2020-11-13 17:07 | PC.NURSE ---
Shift summary. Pt has had 1x complaint of nausea/upset stomach this shift and was treated per MAR and pt reported favorable results. Pts right renteria and calf have continued to be red, weeping, and sloughing. Dressing is changed every 3-4 hours as needed. Pt has tolerated RA well with no complaints of SOA. Pt has not had any febrile episodes t/o shift thus far. Will continue to monitor.
[2020-11-14] VITALS: BP 141/61; PULSE 89; RESP 20; TEMP 37.5; O2SAT 90
[2020-11-14 04:00] VITALS: BP 121/55; PULSE 93; RESP 22; TEMP 37; O2SAT 91
[2020-11-14 04:35] VITALS: BMI 450328.9
[2020-11-14 07:14] LABS: Basophils % 0.2 % (0.1-2.0); Eosinophils % 0.2 % (0.1-12.0); Hematocrit 38.9 % (42.0-52.0); Hemoglobin 12.7 g/dL (14.1-18.0); Lymphocytes # 0.7 K/mm3 (0.7-4.5); Lymphocytes % 6.6 % (10-50); Mean Corpuscular HGB Conc 32.7 g/dL (31.8-35.4); Mean Corpuscular Hemoglobin 28.8 pg (27.0-31.2); Mean Corpuscular Volume 88.2 fl (80-94); Mean Platelet Volume 8.5 fl (7.4-10.4); Monocytes # 0.3 K/mm3 (0.1-1.0); Monocytes % 2.6 % (1.7-9.3); Neutrophils % 90.4 % (37.0-80.0); Platelet Count 239 K/mm3 (142-424); Red Blood Count 4.41 M/mm3 (4.60-6.20); Red Cell Distribution Width 14.3 % (11.5-17.5); White Blood Count 9.9 K/mm3 (4.8-10.8)
[2020-11-14 07:15] LABS: Chloride 98 mmol/L (98-107); Potassium 4.9 mmoL/L (3.5-5.1); Sodium 128 mmol/L (136-145)
[2020-11-14 07:18] LABS: Blood Urea Nitrogen 37 mg/dl (9-20); Creatinine Clearance Estimated 47 mL/min (50-200); Estimated Glomerular Filt Rate 15 ml/min (>60); GFR (African American) 19 ML/MIN (>60)
[2020-11-14 07:19] LABS: Anion Gap 10.9 mEq/L (5-15); Calcium 7.7 mg/dl (8.4-10.2); Carbon Dioxide 24 mmol/L (22.0-30.0); Glucose 123 mg/dl (74-100)
[2020-11-14 07:21] LABS: MANUAL DIFFERENTIAL MANUAL DIFFERENTIAL (MANUAL DIFF)
[2020-11-14 08:00] VITALS: BP 125/59; PULSE 91; RESP 18; TEMP 37.1; O2SAT 92
[2020-11-14 08:47] LABS: Vancomycin,Trough 82.2 ug/mL (5.0-10.0)
--- NOTE | 2020-11-14 08:55 | HMH.PHACONS ---
- Pharmacy Consult Date: 11/14/20 Time: 08:55 Referring provider: URSZULA Reason for Consult:: VANCOMYCIN DOSING Allergies and ADEs:: Allergies Allergy/AdvReac Type Severity Reaction Status Date / Time cephalexin [From Keflex] AdvReac Intermediate CHEMICAL Verified 11/07/20 15:36 HEPITITIS, BREAKING OUT erythromycin base AdvReac Intermediate CHENICAL Verified 11/07/20 15:36 HEPITITIS, BREAKING OUT Home Medications:: Home Medications Medication Instructions Recorded Confirmed Type Citalopram Hydrobromide [Celexa] 40 mg PO DAILY 11/07/20 11/08/20 History Simvastatin 40 mg PO HS 11/07/20 11/08/20 History Furosemide [Lasix 20mg tablet] 40 mg PO DAILY #30 tab 11/12/20 Rx Pantoprazole Sodium [Protonix 40mg 40 mg PO DAILY #30 tablet.dr 11/12/20 Rx tablet] Potassium Chloride [Klor-con 20 20 meq PO DAILY #30 tab 11/12/20 Rx mEq tablet] Rivaroxaban [Xarelto 10mg tablet] 10 mg PO QPMWITHMEAL #30 tab 11/12/20 Rx clindamycin HCL [Clindamycin HCl] 600 mg PO TID #60 cap 11/12/20 Rx Height: 1.93 cm Weight: 167.829 kg Laboratory Results:: Laboratory Results - last 24 hr 11/13/20 08:11: Total Counted 100, Neutrophils % (Manual) 88 H, Lymphocytes % (Manual) 10, Monocytes % (Manual) 2, Platelet Estimate Normal, RBC Morphology Normal 11/14/20 06:25: WBC 9.9, RBC 4.41 L, Hgb 12.7 L, Hct 38.9 L, MCV 88.2, MCH 28.8, MCHC 32.7, RDW 14.3, Plt Count 239, MPV 8.5, Neut % (Auto) 90.4 H, Lymph % (Auto) 6.6 L, [place] % (Auto) 2.6, Eos % (Auto) 0.2, Baso % (Auto) 0.2, Neut # (Auto) 9.0 H, Lymph # (Auto) 0.7, [place] # (Auto) 0.3, Eos # (Auto) 0.0, Baso # (Auto) 0.0 11/14/20 06:25: Sodium 128 L, Potassium 4.9, Chloride 98, Carbon Dioxide 24, Anion Gap 10.9, BUN 37 H D, Creatinine 4.00 H D, Estimated Creat Clear 47, Estimated GFR 15 L*, Est GFR ( Amer) 19 L* D, Glucose 123 H D, Calcium 7.7 L 11/14/20 06:25: Vancomycin Trough 82.2 H Medical History: Reports:: Depression, Hyperlipidemia Denies:: Chronic Obstructive Pulmonary Disease (COPD), Deep Vein Thrombosis, Diabetes Mellitus Type 2, Gastroesophageal Reflux Disease(GERD) Assessment and Plan (1) Cellulitis of right lower extremity Status: Acute Category: Medical Code(s): L03.115 - Cellulitis of right lower limb (2) COVID-19 Status: Acute Category: Medical Code(s): U07.1 - COVID-19 (3) Obesity Status: Acute Category: Medical Code(s): E66.9 - Obesity, unspecified (4) Peripheral vascular disease Status: Acute Category: Medical Code(s): I73.9 - Peripheral vascular disease, unspecified (5) Hypokalemia Status: Acute Category: Medical Code(s): E87.6 - Hypokalemia - Assessment and plan all Dx Assessment and Plan for all problems:: CRITICAL TROUGH OF 82.2 CALLED TO PHARMACY BY SIMONE. RECOMMENDATION: -HOLD DOSES ON 11/14/20 AND RECHECK LEVELS TOMORROW WITH MORNING LABS. -PHARMACY WILL CONTINUE TO FOLLOW AND WILL ADJUST DOSE NECESSARY. THANK YOU FOR INVOLVING PHARMACY IN THE CARE OF THIS PATIENT.
--- NOTE | 2020-11-14 09:06 | HMH.ACPN2 ---
Internal Medicine - PN: Subj *Date: 11/14/20 *Time: 09:06 Interval history: Dramatic increase in creatinine level. Will discontinue vancomycin, pantoprazole, and ibuprofen cardiology will be consulted on him today to suggest further evaluation of vascular status. Exam Vital signs and Labs for Last 24 Hours: Temp Pulse Resp BP Pulse Ox 98.6 F 93 H 22 121/55 L 91 L 11/14/20 04:00 11/14/20 04:00 11/14/20 04:00 11/14/20 04:00 11/14/20 04:00 Laboratory Results - last 24 hr 11/13/20 08:11: Total Counted 100, Neutrophils % (Manual) 88 H, Lymphocytes % (Manual) 10, Monocytes % (Manual) 2, Platelet Estimate Normal, RBC Morphology Normal 11/14/20 06:25: WBC 9.9, RBC 4.41 L, Hgb 12.7 L, Hct 38.9 L, MCV 88.2, MCH 28.8, MCHC 32.7, RDW 14.3, Plt Count 239, MPV 8.5, Neut % (Auto) 90.4 H, Lymph % (Auto) 6.6 L, [place] % (Auto) 2.6, Eos % (Auto) 0.2, Baso % (Auto) 0.2, Neut # (Auto) 9.0 H, Lymph # (Auto) 0.7, [place] # (Auto) 0.3, Eos # (Auto) 0.0, Baso # (Auto) 0.0 11/14/20 06:25: Sodium 128 L, Potassium 4.9, Chloride 98, Carbon Dioxide 24, Anion Gap 10.9, BUN 37 H D, Creatinine 4.00 H D, Estimated Creat Clear 47, Estimated GFR 15 L*, Est GFR ( Amer) 19 L* D, Glucose 123 H D, Calcium 7.7 L 11/14/20 06:25: Vancomycin Trough 82.2 H I & O for Last 24 hours: Intake & Output 11/11/20 11/12/20 11/13/20 11/14/20 11:59 11:59 11:59 11:59 Intake Total 3562 / 3562 600 / 600 1700 / 1700 1340 / 1340 Output Total 300 / 300 300 / 300 Balance 3262 / 3262 300 / 300 1700 / 1700 1340 / 1340 Weight 371 lb 10.414 oz 372 lb 370 lb Assessment and Plan (1) Cellulitis of right lower extremity Status: Acute Category: Medical Code(s): L03.115 - Cellulitis of right lower limb (2) COVID-19 Status: Acute Category: Medical Code(s): U07.1 - COVID-19 (3) Obesity Status: Acute Category: Medical Code(s): E66.9 - Obesity, unspecified (4) Peripheral vascular disease Status: Acute Category: Medical Code(s): I73.9 - Peripheral vascular disease, unspecified (5) Hypokalemia Status: Acute Category: Medical Code(s): E87.6 - Hypokalemia - Assessment and plan all Dx Assessment and Plan for all problems:: As mentioned above DC meds. Cardiology consult.
[2020-11-14 10:29] LABS: Eosinophils % 1 % (0-3); Lymphocytes % 6 % (10-50); Monocytes % 3 % (2-9); Neutrophils % 90 % (42-76); Total Cells Counted 100
[2020-11-14 10:30] LABS: Platelet Estimate Normal; RBC Morphology Normal
[2020-11-14 12:00] VITALS: BP 127/60; PULSE 90; RESP 20; TEMP 37.3; O2SAT 92
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
--- NOTE | 2020-11-14 12:13 | CA_ITS ---
APPROVED REPORT EXAM: Comprehensive 2D, Doppler, and color-flow Echocardiogram Professional Caster: Magdalena Cobb RVT Ht: 6 ft 3 in Wt: 370lbs BSA: 2.85 BP: 130/62 mmHg Indications: COVID,SOA,EDEMA.EX SMOKER,OBESITY 2D Dimensions LVOT 2.31 cm (M/F) 1.5-2.5 LA Volume 39.80 mL LA Volume Index 13.96 mL/m2 (M/F) 16-34 M-Mode Dimensions RVDd 2.68 cm (0.9-2.6) LA Diam 3.84 cm (1.9-4.0) LVDd 5.92 cm (3.5-5.7) Ao Diam 3.23 cm (2.0-3.7) LVDs 3.66 cm (3.5-5.7) IVSd 0.61 cm (0.6-1.1) PWd 0.85 cm (0.6-1.1) EF (Teich) 67.60% FS 38.20% EDV (Teich) 174.60 mL TAPSE 2.21 (<1.7) ESV (Teich) 56.60 mL LV Diastology E Decel Time 237.00 (160-240 msec) E/A Ratio 1.1 MED E' 10.50 (< 7 cm/sec) E'/MED E' Ratio 8.92 (>14) LAT E' 10.00 (<10 cm/sec) E/LAT E' Ratio 9.37 (>14) Aortic Valve AO Peak GR. 10.50 mmHg Mitral Valve MV E Max [place]. 94.00 (40-130 cm/s) MV A Velocity 85.00 (40-130 cm/s) E/A Ratio 1.11 MV Decel. Time 237.00 (160-240 ms) MV PHT 69.00 ms Pulmonary Valve PV Peak Velocity 114.00 (50-150 cm/s) Left Ventricle Left atrium is mildly enlarged, left ventricle is normal size, mild concentric left ventricular hypertrophy, visually estimated ejection fraction 55% with no regional wall motion abnormality. Diastolic parameters are inconclusive. Right Ventricle Right atrium right ventricle mildly enlarged with normal contractility. Aortic Valve Aortic valve is thickened and calcified without aortic stenosis or aortic insufficiency. Mitral Valve Mitral valve grossly normal, there is trace mitral regurgitation. Tricuspid Valve Tricuspid valve grossly normal, there is trace tricuspid regurgitation, tricuspid regurgitation jet velocity is inadequate for calculation of the right ventricular systolic pressure. Pulmonic Valve Pulmonic valve is poorly visualized. Great Vessels Aortic root is normal size. Pericardium No significant pericardial effusion noted. Conclusion 1. Technically difficult study, because of the patient factors and poor acoustic windows, mild biatrial enlargement, normal left ventricular size, mild concentric left ventricular hypertrophy, visually estimated ejection fraction 55% with no regional wall motion abnormality, diastolic parameters are inconclusive. 2. Mildly enlarged right ventricle with normal contractility. 3. Trace mitral and tricuspid regurgitation. 4. No significant pericardial effusion noted. Electronically signed by : Trey Allen MD 11/14/2020 19:17:39
--- NOTE | 2020-11-14 13:23 | P.PN_ITS ---
Internal Medicine - PN: Subj *Date: 11/14/20 *Time: 13:23 Interval history: Anxious for discharge. Plans to follow-up with his PCP Dr. Matias Vazquez in [place]. We discussed the change in renal function and consequent change in medications. Exam Vital signs and Labs for Last 24 Hours: Temp Pulse Resp BP Pulse Ox 98.8 F 91 H 18 125/59 L 92 L 11/14/20 08:00 11/14/20 08:00 11/14/20 08:00 11/14/20 08:00 11/14/20 08:00 Laboratory Results - last 24 hr 11/14/20 06:25: WBC 9.9, RBC 4.41 L, Hgb 12.7 L, Hct 38.9 L, MCV 88.2, MCH 28.8, MCHC 32.7, RDW 14.3, Plt Count 239, MPV 8.5, Neut % (Auto) 90.4 H, Lymph % (Auto) 6.6 L, [place] % (Auto) 2.6, Eos % (Auto) 0.2, Baso % (Auto) 0.2, Neut # (Auto) 9.0 H, Lymph # (Auto) 0.7, [place] # (Auto) 0.3, Eos # (Auto) 0.0, Baso # (Auto) 0.0, Total Counted 100, Neutrophils % (Manual) 90 H, Lymphocytes % (Manual) 6 L, Monocytes % (Manual) 3, Eosinophils % (Manual) 1, Platelet Estimate Normal, RBC Morphology Normal 11/14/20 06:25: Sodium 128 L, Potassium 4.9, Chloride 98, Carbon Dioxide 24, Anion Gap 10.9, BUN 37 H D, Creatinine 4.00 H D, Estimated Creat Clear 47, Estimated GFR 15 L*, Est GFR ( Amer) 19 L* D, Glucose 123 H D, Calcium 7.7 L 11/14/20 06:25: Vancomycin Trough 82.2 H I & O for Last 24 hours: Intake & Output 11/12/20 11/13/20 11/14/20 11/15/20 11:59 11:59 11:59 11:59 Intake Total 600 / 600 1700 / 1700 1580 / 1580 Output Total 300 / 300 Balance 300 / 300 1700 / 1700 1580 / 1580 Weight 371 lb 10.414 oz 372 lb 370 lb - Constitutional no acute distress - *Routine HEENT Exam Head: Present: normocephalic Eye: Present: PERRL ENT: Present: mucous membranes moist - Routine Chest/Breast/Axilla Exam Chest wall: Absent: tenderness - *Routine Respiratory Exam Present: CTA bilaterally - *Routine Cardiovascular Exam Present: RRR - *Routine Abdominal Exam Present: soft, obese. Absent: tenderness - *Routine Extremities Exam Present: edema Comments: The right leg actually looks improved. Less edema, less weeping. Assessment and Plan (1) Cellulitis of right lower extremity Status: Acute Category: Medical Code(s): L03.115 - Cellulitis of right lower limb (2) COVID-19 Status: Acute Category: Medical Code(s): U07.1 - COVID-19 (3) Obesity Status: Acute Category: Medical Code(s): E66.9 - Obesity, unspecified (4) Peripheral vascular disease Status: Acute Category: Medical Code(s): I73.9 - Peripheral vascular disease, unspecified (5) Hypokalemia Status: Acute Category: Medical Code(s): E87.6 - Hypokalemia - Assessment and plan all Dx Assessment and Plan for all problems:: Discharge. To contact his PCP Dr. Vazquez today for follow-up this week. Will need wound care follow-up. Clindamycin 600mg tid. D/C PICC.
--- NOTE | 2020-11-14 14:19 | PC.NURSE ---
dressing changed at this time, 4x4s, abd pads and amrita bandage used to cover area to RLE
--- NOTE | 2020-11-14 14:21 | SW/DCPLANNER ---
Addendum entered by Oneida Young 11/15/20 09:32: Bibiana with [facility] has stated that she spoke with patient this AM and he is not sure if he is interested in their services stating I can do the dressing changes myself . Bibiana stated that she will add patient to schedule for 11/17 (10 days post COVID positive). Bibiana stated that if there are any further issues she will follow up with me. Addendum entered by Oneida Young 11/14/20 15:03: Flores with [facility] has confirmed that services for Wound Care will start tomorrow 11/15/20. Original Note: Patient information/order has been faxed to [facility] for home health services (wound care). I will follow up with [facility] once patient information is reviewed. Patient will discharge home later today.
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
--- NOTE | 2020-11-17 20:26 | PC.NURSE ---
medical records sent to [facility]
== END 2020-11-14 15:54 | disposition home health service (06) | DRG 602 ==
LOC: ER 15:31 → ICU 11-08 07:35 → 2ND 11-08 13:30
PROVIDERS: Admitting Provider Family Medicine; Emergency Provider Emergency Medicine; PCP Family Medicine; Visit Provider Family Medicine
DX: L03.115 Cellulitis of right lower limb (principal); U07.1 COVID-19; Z68.42 Body mass index [BMI] 45.0-49.9, adult; E87.6 Hypokalemia; E66.01 Morbid (severe) obesity due to excess calories; I73.9 Peripheral vascular disease, unspecified; N28.9 Disorder of kidney and ureter, unspecified; D64.9 Anemia, unspecified; F32.9 Major depressive disorder, single episode, unspecified; E78.5 Hyperlipidemia, unspecified
CPT/HCPCS: 36569; 97597; 36415; 71045; 80048; 80053; 80202; 81001; 83605; 85007; 85025; 85610; 85730; 86328; 87040; 87077; 87186; 93306; 93971; 96365; 97162; 99284; C1751; J2405; J3370; U0003

== ENCOUNTER 2020-11-17 10:31 | Emergency (ER) | payer BC, SELFPAY ==
[2020-11-17] VITALS (20 sets, daily range): BP systolic 125–168; BP diastolic 58–84; PULSE 78–103; RESP 17–50; TEMP 37; O2SAT 92–99; BMI 45.6
--- NOTE | 2020-11-17 10:43 | XR_ITS ---
PROCEDURE: XR CHEST PORTABLE CLINICAL HISTORY: sob Covid19 positive COMPARISON: CR XR CHEST PORTABLE from 11/08/2020 CR XR CHEST PORTABLE PICC PLAC from 11/10/2020 FINDINGS: There is cardiomegaly. Pulmonary vessels are obscured by the underlying alveolar disease. Diffuse multifocal pneumonia in both upper and lower lobes with. This has progressed markedly since the previous exam. There may be a trace right effusion. No acute bony abnormalities. IMPRESSION: Diffuse bilateral multifocal pneumonia consistent with progression of Covid19 pneumonia with cardiomegaly Dictated by: Donovan Donahue MD 11/17/2020 11:17 Donovan Donahue MD in [place] 11/17/2020 11:17
--- NOTE | 2020-11-17 10:43 | HMH.EDGENADL ---
ED Disposition Clinical Impression: Acute respiratory failure with hypoxia, COVID, JAMEEL (acute kidney injury), Hyperkalemia Disposition: Xfer Short-Term Hosp Condition on Discharge: Fair Referrals: Umang Vazquez [Primary Care Provider] - Time of Disposition: 13:59 - Critical Care Critical Care Time: Yes Attestation: On , the high probability of a clinically significant, sudden or life threatening deterioration of the following system(s) required my full and direct attention, intervention and personal management. The time I documented below is in addition to time spent performing reported procedures but includes the following listed in this critical care notation. Total Critical Care Time: 65 Vital system(s) involved:: Respiratory Failure, Renal Failure My critical care processes included: Assessment & monitoring of V/S, Initial and Re-exams, Data Review/Interpretation, Coordinating Care, Medication Orders and management, Documentation Medical Decision Making - Medical Records Medical records reviewed: Yes: I reviewed the patient's medical records. - Venkat Inquiry Pt receiving controlled substance: No Vital Signs: 11/17/20 10:31 11/17/20 10:36 11/17/20 10:42 Pulse Rate 100 H 99 H Pulse Rate [Left] 102 H Respiratory Rate 17 43 H 45 H Blood Pressure 168/77 H Blood Pressure [Right Arm] 167/84 H Blood Pressure Mean [Right Arm] 111 Blood Pressure Source [Right Arm] Automatic Cuff 02 Sat by Pulse Oximetry 95 97 97 Oxygen Delivery Method Non-Rebreather Oxygen Flow Rate (LPM) 11/17/20 10:45 11/17/20 11:00 11/17/20 11:08 Pulse Rate 98 H 103 H 98 H Pulse Rate [Left] Respiratory Rate 48 H 25 H 50 H Blood Pressure 140/58 L Blood Pressure [Right Arm] Blood Pressure Mean [Right Arm] Blood Pressure Source [Right Arm] 02 Sat by Pulse Oximetry 96 92 L 94 L Oxygen Delivery Method Oxygen Flow Rate (LPM) 11/17/20 11:15 11/17/20 11:30 11/17/20 11:31 Pulse Rate 96 H 91 H 94 H Pulse Rate [Left] Respiratory Rate 24 37 H 19 Blood Pressure 139/65 Blood Pressure [Right Arm] Blood Pressure Mean [Right Arm] Blood Pressure Source [Right Arm] 02 Sat by Pulse Oximetry 99 99 98 Oxygen Delivery Method Oxygen Flow Rate (LPM) 11/17/20 11:45 Pulse Rate 94 H Pulse Rate [Left] Respiratory Rate 44 H Blood Pressure Blood Pressure [Right Arm] Blood Pressure Mean [Right Arm] Blood Pressure Source [Right Arm] 02 Sat by Pulse Oximetry 99 Oxygen Delivery Method Oxygen Flow Rate (LPM) - Lab Data Lab results reviewed: Yes: I reviewed the patient's lab results. Lab Results 11/17/20 11:00: WBC 10.0, RBC 4.30 L, Hgb 12.4 L, Hct 37.9 L, MCV 88.2, MCH 28.8, MCHC 32.6, RDW 13.8, Plt Count 319 D, MPV 7.0 L, Neut % (Auto) 93.0 H, Lymph % (Auto) 3.9 L, [place] % (Auto) 2.4, Eos % (Auto) 0.4, Baso % (Auto) 0.4, Neut # (Auto) 9.3 H, Lymph # (Auto) 0.4 L, [place] # (Auto) 0.2, Eos # (Auto) 0.0, Baso # (Auto) 0.0, Total Counted 100, Neutrophils % (Manual) 88 H, Lymphocytes % (Manual) 9 L, Monocytes % (Manual) 3, Platelet Estimate Normal, RBC Morphology Normal 11/17/20 11:00: Sodium 126 L, Potassium 6.1 H*, Chloride 95 L, Carbon Dioxide 18 L, Anion Gap 19.1 H, BUN 74 H, Creatinine 8.50 H, Estimated Creat Clear 11, Estimated GFR 6 L*, Est GFR ( Amer) 8 L*, Glucose 137 H, Calcium 7.6 L, Total Bilirubin 0.7, AST 39, ALT 37, Alkaline Phosphatase 276 H, Troponin I 0.02, Total Protein 6.4, Albumin 2.7 L, Globulin 3.7 H, Albumin/Globulin Ratio 0.7 L 11/17/20 11:00: Total Creatine Kinase 42 L Result diagrams: 11/17/20 11:00 11/17/20 11:00 Orders (Tests/Meds): ED MEDICATIONS Generic Name Dose Route Start Last Admin Trade Name Freq PRN Reason Stop Dose Admin Sodium Chloride 1,000 mls @ 999 mls/hr 11/17/20 13:00 11/17/20 12:49 Sod Chlor 0.9% 1000ml Bag IV 11/17/20 14:00 999 mls/hr .[id number] DAYA Administration Discontinued Medications Generic Name Dose Route Start
[2020-11-17 11:14] LABS: Basophils % 0.4 % (0.1-2.0); Eosinophils % 0.4 % (0.1-12.0); Hematocrit 37.9 % (42.0-52.0); Hemoglobin 12.4 g/dL (14.1-18.0); Lymphocytes # 0.4 K/mm3 (0.7-4.5); Lymphocytes % 3.9 % (10-50); Mean Corpuscular HGB Conc 32.6 g/dL (31.8-35.4); Mean Corpuscular Hemoglobin 28.8 pg (27.0-31.2); Mean Corpuscular Volume 88.2 fl (80-94); Monocytes # 0.2 K/mm3 (0.1-1.0); Monocytes % 2.4 % (1.7-9.3); Neutrophils # 9.3 K/mm3 (1.8-7.8); Platelet Count 319 K/mm3 (142-424); Red Cell Distribution Width 13.8 % (11.5-17.5)
[2020-11-17 11:18] LABS: MANUAL DIFFERENTIAL MANUAL DIFFERENTIAL (MANUAL DIFF)
[2020-11-17 11:26] LABS: Alanine Aminotransferase 37 U/L (12-78); Albumin Level 2.7 g/dl (3.5-5.0); Albumin/Globulin Ratio 0.7 (1.1-1.8); Alkaline Phosphatase 276 U/L (38-126); Anion Gap 19.1 mEq/L (5-15); Aspartate Amino Transferase 39 U/L (17-59); Bilirubin,Total 0.7 mg/dl (0.2-1.3); Blood Urea Nitrogen 74 mg/dl (9-20); Calcium 7.6 mg/dl (8.4-10.2); Carbon Dioxide 18 mmol/L (22.0-30.0); Chloride 95 mmol/L (98-107); Creatinine Clearance Estimated 11 mL/min (50-200); Estimated Glomerular Filt Rate 6 ml/min (>60); GFR (African American) 8 ML/MIN (>60); Globulin 3.7 g/dL (1.3-3.2); Glucose 137 mg/dl (74-100); Sodium 126 mmol/L (136-145); Total Protein,Serum 6.4 g/dl (6.3-8.2)
[2020-11-17 11:28] LABS: Potassium 6.1 mmoL/L (3.5-5.1)
--- NOTE | 2020-11-17 11:28 | PC.NURSE ---
CRITICAL LAB VALUES: K 6.1, Cr 8.5, DR. FELICIANO NOTIFIED.
[2020-11-17 11:29] LABS: Lymphocytes % 9 % (10-50); Monocytes % 3 % (2-9); Neutrophils % 88 % (42-76); Platelet Estimate Normal; RBC Morphology Normal; Total Cells Counted 100
[2020-11-17 11:37] LABS: Troponin I 0.02 ng/ml (0.00-0.034)
--- NOTE | 2020-11-17 12:55 | PC.NURSE ---
DAQUAN PRICE speaking with [facility]
--- NOTE | 2020-11-17 12:59 | PC.NURSE ---
contacted [facility], states they are at maximum capacity at their facility
--- NOTE | 2020-11-17 13:02 | PC.NURSE ---
DAQUAN PRICE speaking with hospitalist at [facility].
--- NOTE | 2020-11-17 13:06 | PC.NURSE ---
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
[2020-11-17 13:15] LABS: Creatine Kinase 42 U/L (55-170)
--- NOTE | 2020-11-17 13:17 | ECG_ITS ---
APPROVED REPORT Exam: Resting ECG HR:90 bpm ECG Measurements Heart Rate 90 AXES FL 194 P 29 QRSd 92 QRS 26 QT 364 T 20 QTc 445 Conclusion Normal sinus rhythm Normal ECG Electronically signed by : Torito Gómez MD 11/17/2020 17:32:20
--- NOTE | 2020-11-17 14:07 | PC.NURSE ---
Addendum entered by Justin Spear RN 11/17/20 14:09: ...nurse will be taking this patient. I then provided our facility contact information for them to call back for report. Original Note: call [facility] to give report and was told that they could not accept report at this time because they do not know what
--- NOTE | 2020-11-17 14:26 | PC.NURSE ---
[facility] called for report. Report given to Veronica Hightower RN. [facility] notified of transfer.
--- NOTE | 2020-11-17 14:37 | PC.NURSE ---
[facility], so she states that he will be getting an ICU bed and that I needed to call report to ICU on patient. called [facility] ICU and they do not have a bed for patient at this moment. spoke with DMITRI petreson and he states that a patient has to move out of their full ICU before they can move patient in, and that he will call me when they are ready for patient transport.
--- NOTE | 2020-11-17 15:42 | PC.NURSE ---
Pt given Jello and Ice cream per request.
--- NOTE | 2020-11-17 16:30 | PC.NURSE ---
report given to DMITRI Ramos in ICU. calling [facility] for patient transport .
--- NOTE | 2020-11-17 16:40 | PC.NURSE ---
[facility] aware of transfer.
--- NOTE | 2020-11-17 20:45 | PC.NURSE ---
records sent to [facility]
== END 2020-11-17 17:59 | disposition short-term general hospital (02) ==
PROVIDERS: Emergency Provider Family Medicine; PCP Family Medicine
DX: U07.1 COVID-19 (principal); J96.01 Acute respiratory failure with hypoxia; N17.9 Acute kidney failure, unspecified; E87.5 Hyperkalemia; E78.5 Hyperlipidemia, unspecified; L03.115 Cellulitis of right lower limb; I10 Essential (primary) hypertension; Z79.899 Other long term (current) drug therapy
CPT/HCPCS: 71045; 80053; 82550; 84484; 85007; 85025; 93005; 96365; 96367; 96375; 99284